=== PATIENT | male | born 1970 | race African-American/Black ===

== ENCOUNTER 2016-12-20 12:13 | Inpatient (IN) | payer BC, OTHER ==
[~2016-12-20] VITALS: Ht 152.4 cm; Wt 110.7 kg
--- NOTE | ~2016-12-20 | H ---
[facility] [place] [address] HISTORY AND PHYSICAL Name: ANDREW GROSS Room #: 313-P [facility] M.R.#: [id number] Admission: 12/20/16 Attend Phys: Darci Boyd MD Discharge: Date of : 70 Report #: [id number] THIS REPORT FOR: //name// CC: Pola Boyd DATE OF SERVICE: 12/20/2016 CHIEF COMPLAINT: Alcohol withdrawal. HISTORY OF PRESENT ILLNESS: The patient is a 46-year-old man with longstanding history of heavy alcohol use, who decided to quit drinking alcohol. The patient states that he drinks large bottle of vodka about 750 mL, on daily basis. He quit drinking yesterday. He started having withdrawal symptoms earlier today. He came to the hospital. While he was walking to the hospital, the patient passed out in the parking lot. No seizure activity is reported. In the Emergency Room, the patient's evaluation was grossly unremarkable, including CT scan of the head, as well as chest x-ray, and labs. The patient received appropriate treatment in the Emergency Room. He feels much better, but still has mild tremors. PAST MEDICAL HISTORY: 1. Hypertension. 2. GERD. 3. Chronic alcoholism. 4. History of severe alcohol withdrawal and hallucinations. CURRENT MEDICATIONS: Loratadine 10 mg a day, losartan 100 mg a day, and Protonix 40 mg a day. FAMILY HISTORY: Reviewed and not related to the patient's current condition. SOCIAL HISTORY: The patient is a software development engineer. He drinks alcohol as detailed above. He does not smoke cigarettes. REVIEW OF SYSTEMS: As above in HPI section, all others negative. PHYSICAL EXAMINATION: GENERAL: The patient is well-nourished, healthy looking young man who is in no apparent distress. He is alert and oriented x 3. VITAL SIGNS: Blood pressure is 117/73, heart rate is 108, respiration is between 16 and 25, temperature is 96.7. HEENT: Pupils are equal. Eye movements are normal. The patient has anicteric sclerae. [facility] [address] [place] [address] HISTORY AND PHYSICAL Name: ANDREW GROSS Room #: 313-P [facility].#: [id number] Admission: 12/20/16 Attend Phys: Darci Boyd MD Discharge: Date of : 70 Report #: [id number] NECK: Supple. He has no thyromegaly. JVD is not appreciated. The patient has no neck lymphadenopathy. RESPIRATORY: Chest moves symmetrically with breathing. Lungs are clear to auscultation bilaterally. CARDIOVASCULAR: The patient has regular rhythm and rate. He has no murmurs, gallops or rubs. GASTROINTESTINAL: Abdomen is soft, nondistended and nontender. Bowel sounds are present. The patient has no hepatomegaly or splenomegaly. MUSCULOSKELETAL: The patient has no edema, cyanosis or clubbing. Range of motion is normal. NEUROLOGIC: The patient is alert and oriented x 3. His examination is nonfocal. He has fine tremors in the upper extremities. SKIN: Skin is dry and warm. The patient has no skin lesions. LABORATORY DATA: On basic metabolic profile, creatinine is slightly high at 1.4. Electrolytes are essentially normal. Liver function tests are slightly up. CBC with differential is unremarkable. Chest x-ray shows no infiltrates. Head CT is negative. ASSESSMENT AND PLAN: 1. Alcoholism, alcohol withdrawal. Alcohol withdrawal protocol is initiated. The patient already feels much better. Current treatment will be continued. 2. Elevated creatinine at 1.4, acute kidney injury is suspected. The patient will be hydrated with the IV fluids, and will be reassessed. We will hold losartan for now. 3. Chronic alcoholism. We will ask case resource manager to evaluate the patient. 4. 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 The patient is aware that he needs to quit drinking. 5. Deep venous thrombosis prophylaxis. We will use SCDs. By: [id number] Darci Boyd MD /nt
[2016-12-20 12:14] VITALS: BP 151/108
[2016-12-20] MEDS ORDERED: PROTONIX40 M2 PO (12:21)
[2016-12-20] MEDS ORDERED: COZAAR 50 MG TA50 M2 PO (12:21)
[2016-12-20] MEDS ORDERED: CLARITIN10 MG PO (12:21)
[2016-12-20 12:36] LABS: ABSOLUTE NEUTROPHILS 3.6 thou/uL (1.4-8.2); BASOPHILS 0.7 % (0.0-2.0); EOSINOPHILS 0.1 % (0.0-3.0); HEMATOCRIT 47.8 % (42.0-52.0); HEMOGLOBIN 16.5 gm/dL (14.0-18.0); LYMPHOCYTES 22.3 % (24.0-44.0); MCH 28.9 pg (26.0-34.0); MCHC 34.5 g/dL (28.0-37.0); MCV 83.8 fL (80.0-100.0); MONOCYTES 8.4 % (1.0-8.0); POLYS 68.5 % (36.0-66.0); RDW 17.1 % (10.5-14.5); WBC 5.2 thou/uL (4.0-11.0)
[2016-12-20 12:41] LABS: CALCIUM 8.7 mg/dL (8.5-10.1); CREATININE 1.4 mg/dL (0.6-1.3)
[2016-12-20 12:42] LABS: MANUAL DIFF NO
[2016-12-20 12:45] LABS: ALBUMIN 4.4 g/dL (3.4-5.0); TOTAL BILIRUBIN 1.7 mg/dL (<0.1-1.0); TOTAL PROTEIN 8.9 g/dL (6.4-8.2)
[2016-12-20 13:06] LABS: PLATELET COUNT 125 thou/uL (150-400); PLATELET ESTIMATE NORMAL
[2016-12-20 15:37] VITALS: BP 117/73
[2016-12-20 16:00] VITALS: BP 167/86
[2016-12-20 19:26] VITALS: BP 126/74
[2016-12-20 23:48] VITALS: BP 115/73
[2016-12-21 04:21] VITALS: BP 137/91
[2016-12-21 04:55] LABS: HEMATOCRIT 37.5 % (42.0-52.0); MCH 28.6 pg (26.0-34.0); MCHC 34.3 g/dL (28.0-37.0); MCV 83.4 fL (80.0-100.0); RDW 16.6 % (10.5-14.5); WBC 2.7 thou/uL (4.0-11.0)
[2016-12-21 06:00] LABS: HEMOGLOBIN 12.9 gm/dL (14.0-18.0)
[2016-12-21 06:02] LABS: MANUAL DIFF YES
[2016-12-21 07:52] LABS: ABSOLUTE NEUTROPHILS 1.5 thou/uL (1.4-8.2); ANISOCYTOSIS 1+; TOTAL CELL COUNT 100
[2016-12-21 07:53] LABS: PLATELET COUNT 73 thou/uL (150-400)
[2016-12-21 08:03] VITALS: BP 132/91
[2016-12-21 10:12] LABS: CALCIUM 7.8 mg/dL (8.5-10.1); CREATININE 1.2 mg/dL (0.6-1.3); POTASSIUM 3.9 mmol/L (3.5-5.1)
[2016-12-21 10:18] LABS: ALBUMIN 3.3 g/dL (3.4-5.0); TOTAL BILIRUBIN 1.5 mg/dL (<0.1-1.0); TOTAL PROTEIN 6.5 g/dL (6.4-8.2)
[2016-12-21 11:34] LABS: URINE BILIRUBIN NEGATIVE (Negative); URINE BLOOD NEGATIVE (Negative); URINE COLOR YELLOW; URINE GLUCOSE-RANDOM* NEGATIVE (Negative); URINE KETONES TRACE (Negative); URINE NITRITE NEGATIVE (Negative); URINE PROTEIN (DIPSTICK) TRACE (Negative); URINE SPECIFIC GRAVITY 1.015 (1.003-1.035); URINE UROBILINOGEN 0.2 E.U./dl (0.2-1.0)
[2016-12-21 11:42] LABS: AMP/METHAMP Negative (Negative); BARBITURATES Negative (Negative); BENZODIAZEPINES Negative (Negative); COCAINE Negative (Negative); METHADONE Negative (Negative); OPIATES Negative (Negative); PCP Negative (Negative); THC Negative (Negative)
[2016-12-21 11:49] VITALS: BP 125/74
[2016-12-21 16:19] VITALS: BP 133/88
[2016-12-21 20:00] VITALS: BP 141/98
[2016-12-22 04:00] VITALS: BP 144/102
[2016-12-22 08:45] VITALS: BP 132/89
[2016-12-22] MEDS ORDERED: ATIVAN0.5 MG PO (11:29)
[2016-12-22] MEDS ORDERED: CENTRUM SILVER1 EAC4 PO (11:30)
[2016-12-22 11:43] VITALS: BP 132/89
== END 2016-12-22 12:40 | disposition home or self-care (01) | DRG 897 ==
LOC: ER 12:13 → 3N 13:16 → EROBS 13:16 → 3N 13:16
PROVIDERS: Internal Medicine Endocrinology, Diabetes & Metabolism; Physician Assistant
DX: F10.239 Alcohol dependence with withdrawal, unspecified (principal); N17.9 Acute kidney failure, unspecified; K70.30 Alcoholic cirrhosis of liver without ascites; Y90.8 Blood alcohol level of 240 mg/100 ml or more; I10 Essential (primary) hypertension; K21.9 Gastro-esophageal reflux disease without esophagitis; Z79.899 Other long term (current) drug therapy
CPT/HCPCS: 10096